=== PATIENT | male | born 2005 | race Caucasian/White ===

== ENCOUNTER 2025-03-27 10:53 | Outpatient (REF) | payer BC, SELFPAY ==
--- NOTE | ~2025-03-27 | XR_ITS ---
EXAMINATION: XR LUMBOSACRAL SPINE CLINICAL INFORMATION: PAIN COMPARISON: None available. TECHNIQUE: Three views of the lumbosacral spine. FINDINGS: There is mild wedging of T12. Vertebral body height and alignment is preserved otherwise. Disc spaces are preserved. XR/XR lumbar spine 2-3V IMPRESSION: Mild wedging of T12 could be physiologic in nature though a compression fracture is not ruled out. Electronically signed by: Allen Campos MD 03/27/2025 04:17 PM EDT
--- OUTSIDE RECORDS SUMMARY | 2025-03-27 09:30 | XMS_ITS | Encounter Summary ---
Author Organization [employer] Address [address] [place] [address] Care Team Providers Care Top Polisher Name Role Phone Raquel Win DO Primary Care Provider [phone] Encounter Details Date Type Department Care Team (Late st Contact Info) Description 03/27/2025 9:30 AM EDT Office Visit [facility] [address], [place] [phone] Raquel Win DO [address], [place] [phone] Routine history and physical examination of adult (Primary Dx); Prostatic utricle cyst; Chronic right-sided low back pain without sciatica Social History Tobacco Use Types Packs/Day Years Used Date Smoking Tobacco: Never Smokeless Tobacco: Never Alcohol Use Standard Drinks/Week Comments Never 0 (1 standard drink = 0.6 oz pur e alcohol) Depression Answer Date Recorded Patient Health Questionnaire-9 Score 0 03/27/2025 Patient Health Questionnaire-9 Score 0 03/27/2025 Last PHQ-9: Questionnaire Data Not on file 0 03/27/2025 Housing Stability Answer Date Recorded What is your housing situation today? I have elaina montelongo 03/27/[address] you li ve. Do you have problems with any of the following? None of the above 03/27/2025 Food Insecurity Answer Date Recorded Within the past 12 months, y ou worried that your food would run out before you got money to buy more: Never True 03/27/2025 Within the past 12 months,th e food you bought just didn't last and you didn't have enough money to get more: Never True Transportation Answer Date Recorded In the past 12 months, has l ack of transportation kept you from medical appts, meetings, work or from getting things needed for daily living? No 03/27/2025 Utilities Answer Date Recorded In the past 12 months, has t he electric, gas, oil or water company threatened to shut off services in your home? No 03/27/2025 Depression Answer Date Recorded Patient Health Questionnaire-2 Score 0 03/27/2025 Internet Access Answer Date Recorded Internet Access Q1 Yes 03/27/2025 Internet Access Q2 Not on file 03/27/2025 Sex and Gender Information Value Date Recorded Sex Assigned at Male 02/04/2025 9:24 AM EDT Legal Sex Male 9:23 AM EDT Gender Identity Choose not to disclose 9:03 AM EDT Sexual Orientation Don't know 03/26/2025 9: 03 AM EDT documented as of this encounter Last Filed Vital Signs Vital Sign Reading Time Taken Comments Blood Pressure 126/70 03/27/2025 10:11 AM EDT Pulse 77 03/27/2025 10:11 AM EDT Temperature 36.6 C (97.9 F) 03/27/2025 10:11 AM EDT Respiratory Rate 20 03/27/2025 10:11 AM EDT Oxygen Saturation 100% 03/27/2025 10:11 AM EDT Inhaled Oxygen Concentration - - Weight 83.2 kg (183 lb 8 oz) 03/27/2025 10:11 AM EDT Height 190.5 cm (6' 3 ) 03/27/2025 10:11 AM EDT Body Mass Index 22.94 03/27/2025 10:11 AM EDT documented in this encounter Functional Status * Over the past 2 weeks, how often have you been bothered by any of the following problems? Question Answer Date of Assessment Author Patient Health Questionnaire -2 Score 0 03/27/2025 10:14 AM EDT Beverley Krishnan MA * Little interest or pleasure in doing things Answer Date of Assessment Author Not at all 03/27/2025 10:14 AM EDT Beverley Krishnan MA * Feeling down, depressed, or hopeless Answer Date of Assessment Author Not at all 03/27/2025 10:14 AM EDT Beverley Krishnan MA * Trouble falling or staying asleep, or sleeping too much Answer Date of Assessment Author Not at all 03/27/2025 10:14 AM Beverley Lloyd MA * Feeling tired or having little energy Answer Date of Assessment Author Not at all 03/27/2025 10:14 AM Beverley Lloyd MA * Poor appetite or overeating Answer Date of Assessment Author Not at all 03/27/2025 10:14 AM Beverley Lloyd MA * Feeling bad about yourself - or that you are a failure or have let yourself or your family down Answer Date of Assessment Author Not at all 03/27/2025 10:14 AM Beverley Lloyd MA * Trouble concentrating on things, such as reading the newspaper or watching television Answer Date of Assessment Author Not at all 03/27/2025 10:14 AM Beverley Lloyd MA * Moving or speaking so slowly that other people could have noticed? Or the opposite - being so fidgety or restless that you have been moving around a lot more than usual. Answer Date of Assessment Author Not at all 03/27/2025 10:14 AM Beverley Lloyd MA * Thoughts that you would be better off or hurting yourself in some way Answer Date of Assessment Author Not at all 03/27/2025 10:14 AM Beverley Lloyd MA * Patient Health Questionnaire-9 Score Answer Date of Assessment Author 0 03/27/2025 10:14 AM Beverley Lloyd MA * Over the last 2 weeks, how often have you been bothered by any of the following problems? Question Answer Date of Assessment Author Feeling nervous, anxious, or on edge 0 03/27/2025 10:14 AM Beverley Lloyd MA Not being able to stop or co ntrol worrying 0 03/27/2025 10:14 AM Beverley Lloyd MA Worrying too much about diff erent things 0 03/27/2025 10:14 AM Beverley Lloyd MA Trouble relaxing 0 03/27/2025 10:14 AM Beverley Lloyd MA Being so restless that it is hard to sit still 0 03/27/2025 10:14 AM EDT Beverley Krishnan MA Becoming easily annoyed or irritable 0 03/27/2025 10:14 AM EDT Beverley Krishnan MA Feeling afraid as if somethi ng awful might happen 0 03/27/2025 10:14 AM EDT Beverley Krishnan MA LINDSEY-7 Total Score 0 03/27/2025 10:14 AM EDT Beverley Krishnan MA documented as of this encounter Plan of Treatment Scheduled Orders Name Type Priority Associated Diagnoses Orde r Schedule XR Lumbar Spine 2-3 Views Imaging Routine Chronic right-sided low back pain without sciatica Expected: 03/27/2025, Expires: 03/27/2026 T4, Free Lab Routine Routine history and physical examination of adult Prostatic utricle cyst Chronic right-sided low back pain without sciatica Expected: 03/27/2025 (Approximate), Expires: 03/27/2026 Lipid Panel, Standard Lab Routine Routine history and physical examination of adult Prostatic utricle cyst Chronic right-sided low back pain without sciatica Expected: 03/27/2025 (Approximate), Expires: 03/27/2026 TSH Lab Routine Routine history and physical examination of adult Prostatic utricle cyst Chronic right-sided low back pain without sciatica Expected: 03/27/2025 (Approximate), Expires: 03/27/2026 Vitamin D, 25-Hydroxy, Total, Immunoassay Lab Routine Routine history and physical examination of adult Prostatic utricle cyst Chronic right-sided low back pain without sciatica Expected: 03/27/2025 (Approximate), Expires: 03/27/2026 Hepatic Function Panel Lab Routine Routine history and physical examination of adult Prostatic utricle cyst Chronic right-sided low back pain without sciatica Expected: 03/27/2025 (Approximate), Expires: 03/27/2026 Hemoglobin A1c Lab Routine Routine history and physical examination of adult Prostatic utricle cyst Chronic right-sided low back pain without sciatica Expected: 03/27/2025 (Approximate), Expires: 03/27/2026 CBC Lab Routine Routine history and physical examination of adult Prostatic utricle cyst Chronic right-sided low back pain without sciatica Expected: 03/27/2025, Expires: 03/27/2026 Basic Metabolic Panel Lab Routine Routine history and physical examination of adult Prostatic utricle cyst Chronic right-sided low back pain without sciatica Expected: 03/27/2025 (Approximate), Expires: 03/27/2026 Hepatitis B surface antigen, EIA Lab Routine Routine history and physical examination of adult Prostatic utricle cyst Chronic right-sided low back pain without sciatica Expected: 03/27/2025 (Approximate), Expires: 03/27/2026 Chlamydia/N. Gonorrhoeae RNA, TMA, Urogenitial Microbiology Routine Routine history and physical examination of adult Prostatic utricle cyst Chronic right-sided low back pain without sciatica Ordered: 03/27/2025 HIV-1/2 Antigen and Antibodies, Fourth Generation, with Reflexes Lab Routine Routine history and physical examination of adult Prostatic utricle cyst Chronic right-sided low back pain without sciatica Expected: 03/27/2025 (Approximate), Expires: 03/27/2026 Hepatitis C Antibody with Reflex to HCV, RNA, Quantitative, Real-Time PCR Lab Routine Routine history and physical examination of adult Prostatic utricle cyst Chronic right-sided low back pain without sciatica Expected: 03/27/2025, Expires: 03/27/2026 RPR (Monitor) with Reflex to Titer Lab Routine Routine history and physical examination of adult Prostatic utricle cyst Chronic right-sided low back pain without sciatica Expected: 03/27/2025, Expires: 03/27/2026 Hepatitis B Surface Antibody, Qualitative Lab Routine Routine history and physical examination of adult Prostatic utricle cyst Chronic right-sided low back pain without sciatica Expected: 03/27/2025 (Approximate), Expires: 03/27/2026 Hepatitis A Antibody, Total Lab Routine Routine history and physical examination of adult Prostatic utricle cyst Chronic right-sided low back pain without sciatica Expected: 03/27/2025 (Approximate), Expires: 03/27/2026 Hepatitis B Core Antibody, Total Lab Routine Routine history and physical examination of adult Prostatic utricle cyst Chronic right-sided low back pain without sciatica Expected: 03/27/2025 (Approximate), Expires: 03/27/2026 documented as of this encounter Visit Diagnoses Diagnosis Routine history and physical examination of adult- Primary Prostatic utricle cyst Other specified disorders of urinary tract Chronic right-sided low back pain without sciatica documented in this encounter Additional Health Concerns Assessment Noted Time PHQ-9 Depression Total Score: 0 03/27/20 10:14 AM EDT documented as of this encounter Care Teams Top Polisher Relationship Specialty Start Date End Date Raquel Win DO [address] [place] [address] PCP - General Family Medicine 03/27/25 documented as of this encounter
--- OUTSIDE RECORDS SUMMARY | 2025-03-27 11:36 | XMS_ITS | Encounter Summary ---
Author Organization [facility] Address [address] [place] [id number] Phone Care Team Providers Care Parish Visitor Name Role Phone Ramiro Thomas MD Primary Care Provider [phone] Encounter Details Date Type Department Care Team (Late st Contact Info) Description 02/23/2017 Documentation [facility] [place] [address] [place] [address] Family Medicine, Physician [address], [place] [phone] Social History Tobacco Use Types Packs/Day Years Used Date Smoking Tobacco: Never Assessed Sex and Gender Information Value Date Recorded Sex Assigned at Male 04/25/2019 1:56 PM EDT Legal Sex Male 5:12 PM EDT Gender Identity Male 04/25/2019 1:56 PM EDT Sexual Orientation Straight 04/25/2019 1: 56 PM EDT documented as of this encounter Plan of Treatment Not on file documented as of this encounter Visit Diagnoses Not on filedocumented in this encounter Care Teams Parish Visitor Relationship Specialty Start Date End Date Ramiro Thomas MD [address] [place] [address] [place] [address] PCP - General Pediatrics 02/24/22 documented as of this encounter
--- OUTSIDE RECORDS SUMMARY | 2025-03-27 11:36 | XMS_ITS | Encounter Summary ---
Author Organization [facility] Address [address] [place] [phone] Phone Care Team Providers Care Basket Patcher Name Role Phone Ramiro Thomas MD Primary Care Provider [phone] Encounter Details Date Type Department Care Team (Late st Contact Info) Description 03/03/2016 Documentation [facility] [place] [place] Medicine [address] [place] [address] Family Medicine, Physician [address] [phone] Social History Tobacco Use Types Packs/Day Years [...] on filedocumented in this encounter Care Teams Basket Patcher Relationship Specialty Start Date End Date Ramiro Thomas MD [address] [place] [address] [place] [address] PCP - General Pediatrics 02/24/22 documented as of this encounter
--- OUTSIDE RECORDS SUMMARY | 2025-03-27 11:36 | XMS_ITS | Encounter Summary ---
Author Organization [facility] Address [address] [place], [place] [phone] Phone Care Team Providers Care Wire Puller Name Role Phone Ramiro Thomas MD Primary Care Provider [phone] Encounter Details Date Type Department Care Team (Late st Contact Info) Description 02/22/2017 Conversion Encounter [place] [facility] [place] [address] [place] [address] Social History Tobacco Use Types Packs/Day Years [...] on filedocumented in this encounter Care Teams Wire Puller Relationship Specialty Start Date End Date Ramiro Thomas MD [address] [place] [address] PCP - General Pediatrics 02/24/22 documented as of this encounter
--- OUTSIDE RECORDS SUMMARY | 2025-03-27 11:36 | XMS_ITS | Clinical Summary ---
Author Organization [facility] Address [address] [place] [address] Phone Care Team Providers Care Go Go Dancer Name Role Phone Ramiro Thomas MD Primary Care Provider [phone] Allergies No known active allergies Medications Aklief 0.005 % cream APPLY TO AFFECTED AREA(S) ONCE DAILY AT BEDTIME 10/16/2022 Active finasteride 1 MG tablet Take 1 mg by mouth daily. 12/09/2024 Active minoxidil 2.5 MG tablet Take 2.5 mg by mouth daily. 02/19/2024 Active Active Problems Problem Noted Date Diagnosed Date Hair loss 01/08/2025 Overview (01/08/2025): Followed by Dermatology. Varicocele 06/28/2023 Assessment & Plan (06/28/2023 2:49 PM EST): Followed by urology, has a follow up appointment tomorrow to review U/S and test results. Prostatitis 06/28/2023 Overview (01/08/2025): Seen by [facility]rology for blood in semen and then by [facility]. 12/19/23 prostate ultrasound demonstrated 1.4cm prostatic utricle cyst. Assessment & Plan (06/28/2023 3:37 PM EST): Followed by urology, Dr. Moser in April with follow up scheduled tomorrow to receive results from U/S and testing. Mom concerned that this has not been resolved in almost 2 years. If unsatisfactory findings tomorrow, may request referral for evaluation in [place]. Acne vulgaris 04/25/2018 Overview (01/08/2025): Followed by Dermatology Assessment & Plan (06/28/2023 2:44 PM EST): Using topical treatments in the morning and at night. Assessment & Plan (04/23/2020 8:59 AM EDT): Not interested in medication Assessment & Plan (04/25/2018 2:09 PM EDT): Handout given and discussed. Clindamycin lotion ordered and advised to apply small amount 1 x daily after washing face with soap and water. Wears glasses 04/25/2018 Overview (04/23/2020): 20/70 OU Wears glasses Followed by eye doc Assessment & Plan (04/23/2020 8:51 AM EDT): Doing well with glasses which he did not have with him today Encounters Date Type Department Care Team Description 01/13/2025 Results Follow-Up [place] [facility] [address] [place] [address] Katy Lucero LPN 01/08/2025 1:45 PM EDT Office Visit [facility] [address] [place] [address] Ramiro Thomas MD Well adult exam (Primary Dx); BMI 23.0-23.9, adult; Dietary counseling; Exercise counseling; Special screening examination for chlamydial disease; Wears glasses; Prostatitis, unspecified prostatitis type; Acne vulgaris; Hair loss from Last 3 Months Immunizations Immunization Administration Dates Next Due DTaP / Hep B / IPV 01/10/2005,2004, 005 DTaP 5 09/02/2008,02/28/2006 H1N1 09/07/2009,07/23/2009 HPV Vaccine 9 Valent 04/25/2018,02/15/2017 Hep A, ped/adol 12/21/2014,12/16/2013 Hib (HbOC) 01/10/2005,2004,2004 Hib (PRP-T) 10/24/2005 IPV 09/02/2008 Influenza Split 03/21/2013,04/21/2010 Influenza, injectable, MDCK, preservative free, quadrivalent 03/31/2022,03/20/2020 Influenza, injectable, quadr ivalent, preservative free 04/10/2021,04/25/2019,04/25/2018,04/17,03/03/2016,04/14/2015,04/21/2014 Influenza, injectable, trivalent 009,04/16/2008,04/11/2007,05/10,06/14/2005 MMR 09/02/2008,08/01/2005 Meningococcal B Trumenba 06/05/2022,04/27/2021 Meningococcal Conj (Menactra) MCV4P 12/23/2020,0 01/05/2016 Pneumococcal Conjugate 10/24/2005,2004,2004,09/13 Tdap 01/05/2016 Varicella 09/02/2008,08/01/2005 Family History Medical History Relation Name Comments Obesity Mother Brianne Berger Aneurysm Paternal Grandfather Relation Name Status Comments Father LOUISA MO Alive WORKS A [employer] RT DEVELOPMENT TEAM LEAD, TO PATIENT'S MOTHER Maternal Grandfather Alive Materna l grandfather: Alive and well Maternal Grandmother Alive Materna l grandmother: Alive and well Mother Brianne Berger Alive Mot her: Alive and well, AML in left kidneyWorks as a professor, to patient's father Other No family histo ry of *Heart Disease, No family history of Thrombophilia, No family history of *Sudden /ID under 55, No family history of Sudden /ID under age 55, No family history of Dental caries, Family history of CVA (Stroke), Family history of *Dental caries, No family history of *CVA/Stroke, Family history of Eczema Paternal Grandfather Alive Paterna l grandfather: cigs Paternal Grandmother Alive Paterna l grandmother: cigs Social History Tobacco Use Types Packs/Day Years Used Date Smoking Tobacco: Never Smokeless Tobacco: Never Alcohol Use Standard Drinks/Week Comments No 0 (1 standard drink = 0.6 oz pur e alcohol) Hunger/Food Answer Date Recorded In the last 12 months, did y ou or your family ever eat less than you felt you should because there wasn't enough money for food? No 01/08/2025 Stable Housing Answer Date Recorded Are you worried that in the next 2 months you may not have stable housing? No 01/08/2025 Transportation Concerns Answer Date Rec orded In the last 12 months, have you or your family ever had to go without healthcare because you didn't have a way to get there? No 01/08/2025 Hazards in Home Answer Date Recorded Think about the place you li ve. Do you have problems with any of the following? Pests (mice or roaches), mold, no/not working smoke detectors, water leaks, no window guards. No 2024 Financing Utilities Answer Date Recorde d In the last 12 months, has t he electric, gas, oil, or water company threatened to shut off your services in your home? No 01/08/2025 Safety at Home Answer Date Recorded Are you or your family worried about feeling saf e in your home? No 01/08/2025 Outside Support Answer Date Recorded Do you feel that you need mo re support from other people or programs to help you care for yourself or your family? No 01/08/2025 Understanding Health Concerns Answer Da te Recorded Do you need help understandi ng your or your child's healthcare needs (diagnosis, medications, plan, etc.)? No 01/08/2025 Financing Health Concerns Answer Date R ecorded In the last 12 months, was t here a time when your child needed to see a doctor or get medications or supplies but could not because of cost? No 01/08/2025 Missing School or Work Answer Date Van rded Did you or your child miss s chool or work because of a health problem that could have been avoided? No 01/08/2025 Child Education Answer Date Recorded Do you have concerns about y our/your child's learning or behavior in school, preschool, or daycare? No 01/08/2025 Sex and Gender Information Value Date Recorded Sex Assigned at Male 04/25/2019 1:56 PM EDT Legal Sex Male 5:12 PM EDT Gender Identity Male 04/25/2019 1:56 PM EDT Sexual Orientation Straight 04/25/2019 1: 56 PM EDT Last Filed Vital Signs Vital Sign Reading Time Taken Comments Blood Pressure 107/71 01/08/2025 1:52 PM EDT Pulse 72 01/08/2025 1:52 PM EDT Temperature 36.6 C (97.8 F) 01/08/2025 1:52 PM EDT Respiratory Rate - - Oxygen Saturation 98% 12/19/2024 9:50 AM EDT Inhaled Oxygen Concentration - - Weight 83.5 kg (184 lb) 01/08/2025 1:52 PM EDT Height 188 cm (6' 2 ) 01/08/2025 1:52 PM EDT Body Mass Index 23.62 01/08/2025 1:52 PM EDT Plan of Treatment Health Maintenance Due Date Last Done Comments HIV Screening 2019 Hepatitis C Screening 2022 Influenza Vaccines (#1) 2025 03/31/20 22, 04/10/2021, 03/20/2020, Additional history exists COVID-19 Vaccine (5 - 2024-2 6 season) 2025 03/31/2022, 06/30/2021, 11/12/2020, Additional history exists DTaP,Tdap,and Td Vaccines (7 - Td or Tdap) 01/04/2026 01/05/2016, 09/02/2008, 02/28/2006, Additional history exists Hepatitis B Vaccines Completed 01/10/2005, 2004, 2004 HIB Vaccines Completed 10/24/2005, 11/2004, 2004, Additional history exists Pneumococcal Vaccine Completed 10/24/2005, 01/10/2005, 2004, Additional history exists IPV Vaccines Completed 09/02/2008, 11/2004, 2004, Additional history exists MMR Vaccines Completed 09/02/2008, 08/01/2005 Varicella Vaccines Completed 09/02/2008, 08/01/2005 Hepatitis A Vaccines Completed 12/21/2014, 12/17/19 14 HPV Vaccines Completed 04/25/2018, 02/15/2017 Meningococcal Vaccine Completed 12/23/2020, 016 Men B Vaccine Completed 06/05/2022, 04/27/2021 Procedures * Due to [employer] law, this organization might not be sharing sensitive test results. Procedure Name Priority Date/Time Associated Diagnosis Comments CHLAMYDIA AND GONORRHEA, AMPLIFIED Routine 01/08/2025 2:16 PM EDT Special screening examination for chlamydial disease BRIEF BEHAVIORAL ASSESSMENT - NORMAL(PSC,PHQ9,VAN DERBILT,ETC) Routine 01/08/2025 1:55 PM EDT Well adult exam from Last 3 Months Results * Due to [employer] law, this organization might not be sharing sensitive test results. * Chlamydia and Gonorrhoea, Amplified (01/08/2025 2:16 PM EDT) C trach THOM Negative Negative [facility] N gonorrhoeae THOM Negative Negative [facility] Urine (Urine) 01/08/2025 2:1 6 PM EDT 01/08/2025 Comment:UR Narrative [facility] - 01/12/2025 5:05 PM EDT Performed at: 01 - [facility], [address], [place], [place] [id number] [employer] Operator: Boyd Crockett MD, Phone: [phone] us Ramiro Thomas MD LAB MICROBIOLOGY - GENERAL ORDER DION Final Result Performing Organization Address City/State/[facility] Co de Phone Number [facility] [address] [place] [address] from Last 3 Months Insurance [facility] [employer] Care Teams Go Go Dancer Relationship Specialty Start Date End Date Ramiro Thomas MD [address] [place] [address] [place] [address] PCP - General Pediatrics 02/24/22
--- OUTSIDE RECORDS SUMMARY | 2025-03-27 11:36 | XMS_ITS | Clinical Summary ---
Author Organization [facility] Address [address] [place] [address] Phone Care Team Providers Care Legal Support Assistant Name Role Phone Ramiro Thomas MD Primary Care Provider [phone] Allergies No known active allergies Medications minoxidiL (LONITEN) 2.5 MG tablet 02/18/2024 Active ketoconazole (NIZORAL) 2 % shampoo 01/29/2024 Active AKLIEF 0.005 % cream Apply pea sized amount to face nightly Active Social History Tobacco Use Types Packs/Day Years Used Date Smoking Tobacco: Never Smokeless Tobacco: Never Tobacco Cessation:Counseling Given: Not Answered Education Answer Date Recorded Are you interested in more education? Not on carmine e 06/29/2023 Are you concerned about learning? Not on file 06/29/2023 No 06/29/2023 No 06/29/2023 Digital Access Answer Date Recorded No 06/29/2023 No 06/29/2023 Reliable internet access at home? Not on file 06/29/2023 Device with a working camera? Not on file Sex and Gender Information Value Date Recorded Sex Assigned at Not on file Legal Sex Male 8:43 PM EDT Gender Identity Not on file Sexual Orientation Not on file Last Filed Vital Signs Vital Sign Reading Time Taken Comments Blood Pressure 117/59 02/27/2024 1:12 PM EDT Pulse 59 02/27/2024 1:12 PM EDT Temperature - - Respiratory Rate - - Oxygen Saturation - - Inhaled Oxygen Concentration - - Weight - - Height - - Body Mass Index - - Plan of Treatment Health Maintenance Due Date Last Done Comments DEVELOPMENTAL/BEHAVIORAL SCREENING (PHQ, PSC, or SWYC) 2007 HEPATITIS A VACCINES (2 of 2 - 2-dose series) 06/22/2015 12/21/2014 COMBINED DTaP,Tdap,Td (2 - Td or Tdap) 02/02/2016 01/05/2016 DEPRESSION SCREENING 2016 SMOKING Hx and SMOKELESS TOBACCO SCREENING 2017 ADOLESCENT UNIVERSAL LIPID SCREENING 2021 INFLUENZA VACCINE (#1) 2025 , 04/10/2021, 03/20/2020, Additional history exists COVID-19 VACCINE ( season) 2025 03/31/2022, 06/30/2021, 11/12/2020, Additional history exists MMR VACCINES Completed 09/02/2008, 08/01/2005 VARICELLA VACCINES Completed 09/02/2008, 08/01/2005 HPV VACCINES Completed 04/25/2018, 02/15/2017 MENINGOCOCCAL VACCINES (ACWY) Completed 12/23/2020, 01/05/2016 MENINGOCOCCAL VACCINES (B) Completed 06/05/2022, HEPATITIS C SCREENING Completed 04/14/2024 HIV ONE-TIME SCREENING (18-65 YEARS) Completed 04/14/2024 HIB VACCINES Aged Out No longer eligi ble based on patient's age to complete this topic PNEUMOCOCCAL VACCINES (0-49 years) Aged Out No longer eligible based on patient's age to complete this topic Medical Devices Not on file Procedures Procedure Name Priority Date/Time Associated Diagnosis Comments HEPATITIS C ANTIBODY, QUALITATIVE Routine 04/14/2024 10:03 AM EDT Need for hepatitis C screening test from Last 3 Months or Most Recently Relevant to Health Maintenance Results * Hepatitis C antibody, qualitative (04/14/2024 10:03 AM EDT) HCV NON-REACTIV E NON-REACTI VE [facility] Blood 04/14/2024 10:0 3 AM EDT 04/14/2024 10:29 AM EDT Diamond Rasmussen MD LAB BLOOD OR DERABLES Final Result [facility] [address] [place] [address] from Last 3 Months or Most Recently Relevant to Health Maintenance Insurance [facility] [employer] [facility] [address] [facility] [address] [place] [id number] [place] [address] [place] [address] [address] [facility] [employer] [facility] Care Teams Legal Support Assistant Relationship Specialty Start Date End Date Ramiro Thomas MD [address] [place] [address] PCP - General Pediatrics 06/29/23 Additional Source Comments The information contained in this document represents components of the legal health record. It is not the complete legal health record.[facility]
--- OUTSIDE RECORDS SUMMARY | 2025-03-27 11:36 | XMS_ITS | Encounter Summary ---
Author Organization [facility] Address [address] [place] [address] Phone Care Team Providers Care Command And Control Officer Name Role Phone Ramiro Thomas MD Primary Care Provider [phone] Encounter Details Date Type Department Care Team (Latest Contact Info) Description 09/28/2023 Transcribe Orders Virtual Department [address] [place] [address] Sneha Duran PA [address] [address] Scrotal varices (Primary Dx); Cyst of prostate Social History Tobacco Use Types Packs/Day Years Used Date Smoking Tobacco: Never Assessed Education Answer Date Recorded Are you interested [...] on file Sexual Orientation Not on file documented as of this encounter Plan of Treatment Not on file documented as of this encounter Results * US SCROTUM AND TESTICLES (10/26/2023 6:42 PM EDT) Anatomical Region Laterality Modality Pelvis, Scrotum/Testes, Testes U ltrasound 10/30/2023 10:4 3 AM EDT Impressions 10/30/2023 10:48 AM EDT 1. Bilateral epididymal cystic lesions, significantly larger on the left than right, consistent with spermatoceles. There is slightly increased vascularity and heterogeneous echo-texture on the right which could be correlated with any clinical evidence of epididymitis. No testicular lesion, varices, or other significant intrascrotal pathology apparent. Narrative 10/30/2023 10:48 AM EDT US SCROTUM AND TESTICLES Referring clinician's provided indication for this examination in [facility]: Outside Radiology Order; SCROTAL VARICES, CYST OF PROSTATE TECHNIQUE: Scrotal Ultrasound. Color and spectral Doppler performed. COMPARISON: None FINDINGS: Right hemiscrotum: Testicle: 5.1 x 2.9 x 3.7 cm cm Homogeneous echo-texture without focal mass. Doppler: Normal intratesticular blood flow with color Doppler. Epididymis: Somewhat heterogeneous echo-texture with increased vascularity present, with a 4 x 4 by 4 mm cystic lesion in the head consistent with spermatocele. Varicocele: None. Hydrocele: None. Left hemiscrotum: Testicle: 5.6 x 2.7 x 3.4 cm Homogeneous echo-texture without focal mass. Doppler: Normal intratesticular blood flow with color Doppler. Epididymis: 1.5 x 1.1 x 1.6 cm cystic lesion in head consistent with spermatocele. No increased vascularity. Varicocele: None. Hydrocele: None. Procedure Note Gui Saleem MD - 10/30/2023 US SCROTUM AND TESTICLES Referring clinician's provided indication for this examination in [facility]:Outside Radiology Order; SCROTAL VARICES, CYST OF PROSTATE TECHNIQUE: Scrotal Ultrasound. Color and spectral Doppler performed. COMPARISON: None FINDINGS: Right hemiscrotum: Testicle: 5.1 x 2.9 x 3.7 cm cm Homogeneous echo-texture without focal mass. Doppler: Normal intratesticular blood flow with color Doppler. Epididymis: Somewhat heterogeneous echo-texture with increased vascularitypresent, with a 4 x 4 by 4 mm cystic lesion in the head consistent withspermatocele. Varicocele: None. Hydrocele: None. Left hemiscrotum: Testicle: 5.6 x 2.7 x 3.4 cm Homogeneous echo-texture without focal mass. Doppler: Normal intratesticular blood flow with color Doppler. Epididymis: 1.5 x 1.1 x 1.6 cm cystic lesion in head consistent withspermatocele. No increased vascularity. Varicocele: None. Hydrocele: None. IMPRESSION: 1. Bilateral epididymal cystic lesions, significantly larger on the leftthan right, consistent with spermatoceles. There is slightly increasedvascularity and heterogeneous echo-texture on the right which could becorrelated with any clinical evidence of epididymitis. No testicularlesion, varices, or other significant intrascrotal pathology apparent. Sneha GONZALEZ IMG US SCROTUM/PENIS Final Resul t documented in this encounter Visit Diagnoses Diagnosis Scrotal varices- Primary Cyst of prostate Scrotal varices Cyst of prostate documented in this encounter Care Teams Command And Control Officer Relationship Specialty Start Date End Date Ramiro Thomas MD [address] [place] [address] PCP - General Pediatrics 06/29/23 documented as of this encounter Additional Source Comments The information contained in this document represents components of the legal health record. It is not the complete legal health record.[facility]
--- OUTSIDE RECORDS SUMMARY | 2025-03-27 11:36 | XMS_ITS | Encounter Summary ---
Author Organization [facility] Address [address] [place] [address] Phone Care Team Providers Care Apparel Designer Name Role Phone Ramiro Thomas MD Primary Care Provider [phone] Encounter Details Date Type Department Care Team (Latest Contact Info) Description 07/23/2023 Transcribe Orders [facility] Specimen Processing [address] [place] [address] Mundo Moser MD [address] [place] [address], [address] [address] Blood in semen (Primary Dx) Social History Tobacco Use Types Packs/Day Years [...] as of this encounter Visit Diagnoses Diagnosis Blood in semen- Primary Hematospermia documented in this encounter Care Teams Apparel Designer Relationship Specialty Start Date End Date Ramiro Thomas MD [address] [place] [address] PCP - General Pediatrics 06/29/23 documented as of this encounter Additional Source Comments The information contained in this document represents components of the legal health record. It is not the complete legal health record.[facility]
--- OUTSIDE RECORDS SUMMARY | 2025-03-27 11:36 | XMS_ITS | Encounter Summary ---
Author Organization [employer] Address [address] [place] [address] Care Team Providers Care Instructor Of Nursing Name Role Phone Raquel Win DO Primary Care Provider [phone] Reason for Visit * Reason Onset Date Comments Insurance 03/27/2025 Encounter Details Date Type Department Care Team (Late st Contact Info) Description 03/27/2025 Telephone [facility] MEDICINE [address] [place], [place] [phone] Raquel Win DO [address] [place], [place] [phone] Insurance Social History Tobacco Use Types Packs/Day Years [...] is your housing situation today? I have elainamillie montelongo 03/27/[address] you [...] AM EDT documented as of this encounter Miscellaneous Notes * Telephone Encounter - Dawn Edwards - 03/27/2025 9:45 AM EDT Pt walked in for schedule appt I informed pt his insurance was inactive [facility] and he would need to call the number on the card to see what was going on. Pt stated his insurance was active he left and called. He came back and said they told him it was active which I then called the number on his insurance card and the it sales representative told me it was active and I asked who was the pcp assigned to they said it wasn't assigned to anyone I asked if he can see if was in network which he said yes he can check he then told me she was and he was all set. documented in this encounter Plan of Treatment Not on file documented as of this encounter Visit Diagnoses Not on filedocumented in this encounter Additional Health Concerns Assessment Noted Time PHQ-9 Depression Total Score: 0 03/27/20 10:14 AM EDT documented as of this encounter Care Teams Instructor Of Nursing Relationship Specialty Start Date End Date Raquel Win DO [address] [place] [address] PCP - General Family Medicine 03/27/25 documented as of this encounter
--- OUTSIDE RECORDS SUMMARY | 2025-03-27 11:36 | XMS_ITS | Encounter Summary ---
Author Organization [employer] Address [address] 7[address] [place] [address] Care Team Providers Care Gummed Tape Press Operator Name Role Phone Raquel Win Primary Care Provider [phone] Encounter Details Date Type Department Care Team (Latest Contact Info) Description 03/27/2025 Travel Social History Tobacco Use Types Packs/Day Years [...] your housing situation today? I have elaina reginald 03/27/[address] you li [...] AM EDT documented as of this encounter Functional Status * Over the [...] AM EDT Beverley Krishnan MA * Feeling tired or having little energy Answer Date of Assessment Author Not at all 03/27/2025 10:14 AM EDT Beverley Krishnan MA * Poor appetite or overeating Answer Date of Assessment Author Not at all 03/27/2025 10:14 AM GABRIELET Beverley Krishnan MA * Feeling bad about yourself - or that you are a failure or have let yourself or your family down Answer Date of Assessment Author Not at all 03/27/2025 10:14 AM EDT Beverley Krishnan MA * Trouble concentrating on things, such as reading the newspaper or watching television Answer Date of Assessment Author Not at all 03/27/2025 10:14 AM GABRIELET Beverley Krishnan MA * Moving or speaking so slowly that other people could have noticed? Or the opposite - being so fidgety or restless that you have been moving around a lot more than usual. Answer Date of Assessment Author Not at all 03/27/2025 10:14 AM GABRIELET Beverley Krishnan MA * Thoughts that you would be better off or hurting yourself in some way Answer Date of Assessment Author Not at all 03/27/2025 10:14 AM GABRIELET Beverley Krishnan MA * Patient Health Questionnaire-9 Score Answer Date of Assessment Author 0 03/27/2025 10:14 AM EDT Beverley Krishnan MA * Over the last 2 weeks, how often have you been bothered by any of the following problems? Question Answer Date of Assessment Author Feeling nervous, anxious, or on edge 0 03/27/2025 10:14 AM EDT Beverley Krishnan MA Not being able to stop or co ntrol worrying 0 03/27/2025 10:14 AM EDT Beverley Krishnan MA Worrying too much about diff erent things 0 03/27/2025 10:14 AM EDT Beverley Krishnan MA Trouble relaxing 0 03/27/2025 10:14 AM EDT Beverley Krishnan MA Being so restless that it is hard to sit still 0 03/27/2025 10:14 AM EDT Beverley Krishnan MA Becoming easily annoyed or irritable 0 03/27/2025 10:14 AM EDT Beverley Krishnan MA Feeling afraid as if somethi ng awful might happen 0 03/27/2025 10:14 AM EDT Beverley Krishnan MA LINDSEY-7 Total Score 0 03/27/2025 10:14 AM GABRIELET Beverley Krishnan MA documented as of this encounter Plan of Treatment Not on file documented as of this encounter Visit Diagnoses Not on filedocumented in this encounter Additional Health Concerns Assessment Noted Time PHQ-9 Depression Total Score: 0 03/27/20 10:14 AM EDT documented as of this encounter Care Teams Gummed Tape Press Operator Relationship Specialty Start Date End Date Raquel Win DO [address] [place] [address] PCP - General Family Medicine 03/27/25 documented as of this encounter
--- OUTSIDE RECORDS SUMMARY | 2025-03-27 11:36 | XMS_ITS | Encounter Summary ---
Author Organization [facility] Address [address] [facility] [address] [place] [address] Phone Care Team Providers Care Law Writer Name Role Phone Ramiro Thomas MD Primary Care Provider [phone] Encounter Details Date Type Department Care Team (Late st Contact Info) Description 02/27/2024 Procedure Pass [facility]' Electric Motor Tester Assembler [place] [address] [place] [address] Social History Tobacco Use Types Packs/Day Years Used Date Smoking Tobacco: Never Smokeless Tobacco: Never Education Answer Date Recorded Are you interested in more education? Not on cramine e 06/29/2023 Are you concerned about learning? [...] on filedocumented in this encounter Care Teams Law Writer Relationship Specialty Start Date End Date Ramiro Thomas MD [address] [place] [address] PCP - General Pediatrics 06/29/23 documented as of this encounter Additional Source Comments The information contained in this document represents components of the legal health record. It is not the complete legal health record.[facility]
--- OUTSIDE RECORDS SUMMARY | 2025-03-27 11:36 | XMS_ITS | Clinical Summary ---
Author Organization [employer] Address [address] [facility] 7t [place] [address] Care Team Providers Care Wastewater Treatment Plant Instructor Name Role Phone Raquel Win DO Primary Care Provider [phone] Allergies No known active allergies Medications methylPREDNISol one (Medrol Dospak) 4 MG tablets Follow schedule on package instructions 21 tablet 5 04/03/20 25 Active naproxen (Naprosyn) 500 MG tablet Take 1 tablet (500 mg) by mouth if needed in the morning and at bedtime for mild pain. 40 tablet 1 5 03/27/20 26 Active baclofen (Lioresal) 10 MG tablet Take 1 tablet (10 mg) by mouth if needed in the morning, at noon, and at bedtime for muscle spasms. 60 tablet 1 5 05/26/20 25 Active Diclofenac Sodium 1 % gel Apply 2 g topically if needed in the morning, at noon, in the evening, and at bedtime (pain). 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 12/19/23 prostate ultrasound demonstrated 1.4cm prostatic utricle cyst. Spermatocele 06/28/2023 Acne vulgaris 04/25/2018 Overview (03/27/2025): Followed by Dermatology Encounters Date Type Department Care Team Description 03/27/2025 9:30 AM EDT Office Visit [facility] MEDICINE [address] [place] [address] Raquel Win DO Routine history and physical examination of adult (Primary Dx); Prostatic utricle cyst; Chronic right-sided low back pain without sciatica 03/27/[address] [phone] Raquel Win, DO Insurance 03/27/2025 Travel 03/26/[address] [phone] Raquel Win, DO Chart Prep 03/19/2025 Patient Outreach [address] [phone] Raquel Win, DO Pre-visit Planning ((Unable to reach for PVP screening, LVM) to be completed in office ) from Last 3 Months Immunizations Immunization Administration Dates Next Due DTaP / Hep B / IPV 01/10/2005,2004, 005 DTaP, 5 pertussis antigens 09/02/2008,02/28/2006 HPV 9-Valent 04/25/2018,02/15/2017 Hep A, ped/adol, 2 dose 12/21/2014,12/16/2013 Hib (HbOC) 01/10/2005,2004,2004 Hib (PRP-T) 10/24/2005 IPV 09/02/2008 Influenza Injectable Quadriv alant Preservative Free IIV4 MDCK 03/31/2022,03/20/2020 Influenza injectable quadriv alent preservative free 04/10/2021,04/25/2019,04/25/2018,04/17,03/03/2016,04/14/2015,04/21/2014 Influenza, IIV3, injectable 04/12/2009,1 ,04/11/2007,05/10,06/14/2005 Influenza, Split (incl. jazmin fied surface antigen) 03/21/2013,04/21/2010 MMR 09/02/2008,08/01/2005 Meningococcal B, Recombinant 06/05/2022,04/27/20 21 Meningococcal MCV4P ACYW-135 12/23/2020,01/05/20 16 Novel [id number], all formulations 09/07/2009,07/23/2009 Pneumococcal Conjugate PCV 7 10/24/2005, 01/10/2005,2004,09/13 Tdap 01/05/2016 Varicella 09/02/2008,08/01/2005 Family History Medical History Relation Name Comments No Known Problems Father Kidney cancer Maternal Grandfather No Known Problems Mother Aortic aneurysm Paternal Grandfather Prostate cancer Paternal Grandfather Relation Name Status Comments Father Maternal Grandfather Mother Paternal Grandfather Social History Tobacco Use Types Packs/Day Years [...] Don't know 03/26/2025 9: 03 AM EDT Last Filed Vital Signs Vital Sign [...] Mass Index 22.94 03/27/2025 10:11 AM EDT Plan of Treatment Health Maintenance Due Date Last Done Comments HIV Screening 2004 Family Planning (PISQ) 2019 Hepatitis C Screening 2022 COVID-19 Vaccine ( season) 2025 03/31/2022, 06/30/2021, 11/12/2020, Additional history exists Influenza Vaccine (#1) 2025 , 04/10/2021, 03/20/2020, Additional history exists DTaP/Tdap/Td Vaccines (7 - Td or Tdap) 01/04/2026 01/05/2016, 09/02/2008, 02/28/2006, Additional history exists Chlamydia and Gonorrhea Screening 01/08/2026 01/08/2025, 04/14/2024 Alcohol/Substance Use Screening 03/27/2026 03/27/2025 Depression Screening 03/27/2026 03/27/2025, 03/27/20 Disability Screening 03/27/2026 03/27/2025 SDOH Screening 03/27/2026 03/27/2025 Tobacco Screening 03/27/2026 03/27/2025 Zoster Vaccines (1 of 2) 2054 RSV Patients and Patients Aged 60 years or older (1 - 1-dose 75+ series) 2079 Hepatitis B Vaccines Completed 01/10/2005, 2004, 2004 HIB Vaccines Completed 10/24/2005, 11/2004, 2004, Additional history exists Pneumococcal Vaccine: Pediatrics (0 to 5 Years) and At-Risk Patients (6 to 49) Years Aged Out 10/24/2005, 01/10/2005, 2004, Additional history exists No longer eligible based on patient's age to complete this topic IPV Vaccines Completed 09/02/2008, 11/2004, 2004, Additional history exists Hepatitis A Vaccines Completed 12/21/2014, 12/17/19 14 HPV Vaccines Completed 04/25/2018, 02/15/2017 Meningococcal Vaccine Completed 12/23/2020, 016 Meningococcal B Vaccine Completed 06/05/2022, 04/27 RSV under 20 months Aged Out No longe r eligible based on patient's age to complete this topic Rotavirus Vaccines Aged Out No longer eligible based on patient's age to complete this topic Insurance [facility] CHO[facility] Care Teams Wastewater Treatment Plant Instructor Relationship Specialty Start Date End Date Raquel Win DO [address] [place] [address] PCP - General Family Medicine 03/27/25
--- OUTSIDE RECORDS SUMMARY | 2025-03-27 11:36 | XMS_ITS | Encounter Summary ---
Author Organization [employer] Address [address] [place] [address] Care Team Providers Care Art Class Model Name Role Phone Unavailable Primary Care Provider Unavailabl e Reason for Visit * Reason Onset Date Comments Chart Prep 03/26/2025 Encounter Details Date Type Department Care Team (Late st Contact Info) Description 03/26/2025 Telephone [facility] MEDICINE [address] [place], [place] [phone] Raquel Win DO [address] [place], [place] [phone] Chart Prep Social History Tobacco Use Types Packs/Day Years Used Date Smoking Tobacco: Never Assessed Depression Answer Date Recorded Patient Health Questionnaire-9 [...] encounter Miscellaneous Notes * Telephone Encounter - Beverley Krishnan MA - 03/26/2025 11:39 AM EDT Chart Prep Labs: not applicable Images: not applicable Referrals: not applicable Vaccines due: Covid and Flu Screenings: LMP Overdue care gaps: SBIRT, SDOH, PHQ-9, LINDSEY-7, Oral health screening, and Disability screen documented in this encounter Plan of Treatment Not on file documented as of this encounter Visit Diagnoses Not on filedocumented in this encounter
--- OUTSIDE RECORDS SUMMARY | 2025-03-27 11:36 | XMS_ITS | Encounter Summary ---
Author Organization [facility] Address [address] [place] [address] [place] [address] Phone Care Team Providers Care Technical Artist Name Role Phone Ramiro Thomas MD Primary Care Provider [phone] Encounter Details Date Type Department Care Team (Late st Contact Info) Description 11/21/2023 Telephone DEPARTMENT OF UROLOGY [address] [facility], [address] [place] [address] Briseida Arredondo, [facility] [address] [facility] [place] [address] [email or web address] Social History Tobacco Use Types Packs/Day Years [...] on filedocumented in this encounter Care Teams Technical Artist Relationship Specialty Start Date End Date Ramiro Thomas MD [address] [place] [address] PCP - General Pediatrics 06/29/23 documented as of this encounter Additional Source Comments The information contained in this document represents components of the legal health record. It is not the complete legal health record.[facility]
== END 2025-03-27 10:54 | disposition home or self-care (01) ==
LOC: HO.HHCX 10:53
PROVIDERS: PCP Family Medicine; Visit Provider Family Medicine
DX: M54.50 Low back pain, unspecified (principal); G89.29 Other chronic pain
CPT/HCPCS: 72100

== ENCOUNTER → 2025-03-27 16:00 | Outpatient (BNV) | payer BC, SELFPAY | PROVIDERS: PCP Family Medicine; Visit Provider Radiology Diagnostic Radiology | DX: M54.50 Low back pain, unspecified (principal) | CPT/HCPCS: 72100 ==